=== PATIENT | male | born 1995 | race Caucasian/White ===

== ENCOUNTER 2016-07-05 17:39 | Emergency (ER) | payer MEDICAID, OTHER ==
--- NOTE | 2016-07-05 18:18 | EDPHY ---
H & P Stated Complaint: R thumb lac cutting vegs at work Time Seen by Provider: 07/05/16 17:50 HPI/ROS: Chief complaint: Thumb laceration HPI: 20-year-old male avulsed the tip of his right thumb cutting vegetables at work. Bleeding is controlled direct pressure. He is up-to-date in his tetanus. Denies any other injuries. ROS: 10 point Review of Systems is negative except as noted in the HPI. Past medical history: None Medications none Allergies none Physical exam: General: Awake, alert, no acute distress Right hand. He is avulsed the tip of his right thumb including a distal portion was nail. There is no suturable laceration. Is cap refills less than 2 seconds. Sensations intact. He has full flexion extension of his digits. Skin: No rash - Personal History Current Tetanus/Diphtheria Vaccine: No Current Tetanus Diphtheria and Acellular Pertussis (TDAP): No - Medical/Surgical History Hx Asthma: No Hx Chronic Respiratory Disease: No Hx Diabetes: No Hx Cardiac Disease: No Hx Renal Disease: No Hx Cirrhosis: No Hx Alcoholism: No Other PMH: denies - Social History Smoking Status: Current every day smoker Constitutional: Initial Vital Signs Temperature (C) 36.4 C 07/05/16 17:46 Heart Rate 63 07/05/16 17:46 Respiratory Rate 16 07/05/16 17:46 Blood Pressure 155/88 H 07/05/16 17:46 O2 Sat (%) 97 07/05/16 17:46 O2 Delivery Mode Room Air Allergies/Adverse Reactions: No Known Allergies Allergy (Unverified 02/05/15 14:21) Home Medications: Medication Instructions Recorded NK [No Known Home Meds] 07/05/16 Departure - Departure Disposition: Home, Routine, Self-Care Clinical Impression: Avulsion, finger tip Condition: Good Instructions: Skin Avulsion (ED) Additional Instructions: Follow up with workman's comp and 3-4 days for re-evaluation. Referrals: NONE *PRIMARY CARE P,. [Primary Care Provider] - As per Instructions Work Comp Referral [facility] [Outside] - As per Instructions
[2016-07-05 18:51] VITALS: BP 128/78; PULSE 70; RESP 14; TEMP 98.4; O2SAT 94
== END 2016-07-05 18:49 | disposition home or self-care (01) ==
DX: S61.001A Unspecified open wound of right thumb without damage to nail, initial encounter (principal); F17.200 Nicotine dependence, unspecified, uncomplicated; W27.4XXA Contact with kitchen utensil, initial encounter; Y92.69 Other specified industrial and construction area as the place of occurrence of the external cause; Y99.0 Civilian activity done for income or pay; Y93.89 Activity, other specified